=== PATIENT | female | born 1975 | race American Indian/Alaskan Native ===

== ENCOUNTER 2021-10-04 10:01 | Emergency (ER) | payer MEDICAID ==
[2021-10-04] MEDS ORDERED: IPRATROPIUM 0.02% NEBU 2.5 ML IH ONE (10:11)
[2021-10-04] MEDS ORDERED: dexAMETHasone 4 MG/ML VIAL IM STA (10:11)
[2021-10-04] MEDS ORDERED: ALBUTEROL 2.5 MG/3 ML NEBU IH ONE (10:11)
--- NOTE | 2021-10-04 10:49 | Emergency Department Report ---
ED General Adult HPI - General Chief complaint: Adult Asthma Stated complaint: ASTHMA Time Seen by Provider: 10/04/21 10:09 Source: patient Mode of arrival: Ambulatory Limitations: No Limitations - History of Present Illness Initial comments: 46-year-old -[place] female patient presents with complaints of asthma exacerbation x2 days. She states she has been having wheezing, chest tightness, and shortness of breath along with nonproductive cough. Patient states this feels like her asthma and that she ran out of her nebulizer and her inhaler at home. She denies any leg pain or swelling, hormone use, history of DVT/PE/cancer, hemoptysis, or recent long travel/surgeries. No other past medical history per patient. No loss of taste or smell or fever/chills/sweats. Patient states she is otherwise feeling well - Related Data Previous Rx's Medication Instructions Recorded Last Taken Type Albuterol Sulfate [Proventil Hfa] 6.7 gm IH Q4H PRN #1 hfa.aer.ad 10/04/21 Unknown Rx Prednisone [predniSONE 10 mg 10 mg PO .TAPER #1 tab.ds.pk 10/04/21 Unknown Rx (6-Day Pack, 21 Tabs)] Allergies Allergy/AdvReac Type Severity Reaction Status Date / Time No Known Allergies Allergy Unverified 10/04/21 10:04 ED Review of Systems ROS: Stated complaint: ASTHMA Other details as noted in HPI Constitutional: denies: chills, fever Respiratory: cough, shortness of breath, wheezing Gastrointestinal: denies: abdominal pain Musculoskeletal: denies: back pain Neurological: denies: headache ED Past Medical Hx - Past Medical History Previous Medical History?: Yes Hx Asthma: Yes - Surgical History Past Surgical History?: No - Medications Home Medications: Home Medications Medication Instructions Recorded Confirmed Last Taken Type Albuterol Sulfate [Proventil Hfa] 6.7 gm IH Q4H PRN #1 hfa.aer.ad 10/04/21 Unknown Rx Prednisone [predniSONE 10 mg 10 mg PO .TAPER #1 tab.ds.pk 10/04/21 Unknown Rx (6-Day Pack, 21 Tabs)] ED Physical Exam - General Limitations: No Limitations General appearance: alert, in no apparent distress - Head Head exam: Present: atraumatic, normocephalic - Eye Eye exam: Present: normal appearance - Respiratory Respiratory exam: Present: wheezes. Absent: respiratory distress, rales, rhonchi, stridor - Cardiovascular Cardiovascular Exam: Present: regular rate, normal rhythm. Absent: systolic murmur, diastolic murmur, rubs, gallop - Extremities Exam Extremities exam: Present: full ROM. Absent: calf tenderness - Neurological Exam Neurological exam: Present: alert, oriented X3, normal gait - Psychiatric Psychiatric exam: Present: normal affect, normal mood - Skin Skin exam: Present: warm, dry, intact, normal color. Absent: rash ED Course Vital Signs 10/04/21 10:06 Temperature 97.6 F Pulse Rate 83 Respiratory 20 Rate Blood Pressure 139/94 O2 Sat by Pulse 98 Oximetry ED Medical Decision Making - Medical Decision Making 46-year-old -[place] female patient presents with complaints of asthma exacerbation x2 days. She states she has been having wheezing, chest tightness, and shortness of breath along with nonproductive cough. Patient states this feels like her asthma and that she ran out of her nebulizer and her inhaler at home. She denies any leg pain or swelling, hormone use, history of DVT/PE/cancer, hemoptysis, or recent long travel/surgeries. No other past medical history per patient. No loss of taste or smell or fever/chills/sweats. Patient states she is otherwise feeling well Duoneb and decadron given here in ED. Pt states chest tightness resolved and that she is feeling well. Wheezing improved upon reexamination. Her vitals remained stable and oxygen is normal on room air. Patient is stable for discharge home. She is to follow-up with PCP as needed. Strict return precautions discussed in detail with patient who verbalizes understanding. Critical care attestation.: If time is entered above; I have spent that time in minutes in the direct care of this critically ill patient, excluding procedure time. ED Disposition Clinical Impression: Asthma exacerbation Disposition: HOME / SELF CARE / HOMELESS Is pt being admited?: No Condition: Stable Instructions: Asthma, Adult Prescriptions: Prednisone [predniSONE 10 mg (6-Day Pack, 21 Tabs)] 10 mg PO .TAPER #1 tab.ds.pk Albuterol Sulfate [Proventil Hfa] 6.7 gm IH Q4H PRN #1 hfa.aer.ad PRN Reason: shortness of breath Referrals: [facility] [Provider Group] - 2-3 Days (please recheck your blood pressure with your family medicine provider ) Forms: Work/School Release Form(ED)
[2021-10-04 12:23] VITALS: BP 140/78
== END 2021-10-04 12:23 | disposition home or self-care (01) ==
LOC: ED 10:01
DX: J45.901 Unspecified asthma with (acute) exacerbation (principal)
CPT/HCPCS: 94640; 96372; 99282; J1100; 94644